=== PATIENT | female | born 1980 ===

== ENCOUNTER 2019-11-27 15:17 | Emergency (ER) | payer OTHER ==
[~2019-11-27] VITALS: Ht 162.6 cm; Wt 64.4 kg
== END 2019-11-27 18:41 | disposition home or self-care (01) ==
LOC: ER 15:17
DX: S60.222A Contusion of left hand, initial encounter (principal); W18.09XA Striking against other object with subsequent fall, initial encounter; Y93.89 Activity, other specified; Y92.018 Other place in single-family (private) house as the place of occurrence of the external cause; Y99.8 Other external cause status